=== PATIENT | female | born 1955 | race Caucasian/White ===

== ENCOUNTER 2016-10-23 11:50 | Outpatient (CLI) ==
[2015-02-20 11:50] VITALS: BMI 20.7
[2016-10-23 12:55] LABS: ALBUMIN 3.9 g/dL (3.4-5.0); ALBUMIN/GLOBULIN RATIO 1.3; BILIRUBIN,TOTAL 0.47 mg/dL (0.00-1.20); BUN/CREATININE RATIO 10.34; CALCIUM 9.2 mg/dL (8.2-10.2); CHOL/HDL RATIO 4.6 (4.5-5.5); CREATININE 1.16 mg/dL (0.60-1.30); TOTAL PROTEIN 6.9 g/dL (5.8-8.1)
--- NOTE | 2016-10-23 13:13 | DI ---
EXAM: Radiographs, lumbar spine HISTORY: Lumbar radiculopathy, spinal stenosis. COMPARISON: 04/23/2011. TECHNIQUE: Five views. FINDINGS: Curvature and alignment are normal. Vertebral body heights are grossly normal in the lum bar spine. Transitional lumbosacral anatomy noted. Disc heights are normal. Mild facet arthropath y and endplate osteophyte formation is present. No acute fractures seen. Sacral arcuate lines are poorly seen due to osteopenia and superimposition of structures. Atherosclerotic calcifications not ed in the aorta. Since the prior study, there is no significant interval change. IMPRESSION: Stable mild degenerative changes.
== END 2016-10-23 11:51 | disposition home or self-care (01) ==
LOC: RAD 11:50
PROVIDERS: ATTEND Nurse Practitioner Family
DX: J44.9 Chronic obstructive pulmonary disease, unspecified (principal); I10 Essential (primary) hypertension; E78.5 Hyperlipidemia, unspecified; M51.16 Intervertebral disc disorders with radiculopathy, lumbar region; M51.17 Intervertebral disc disorders with radiculopathy, lumbosacral region; M48.06 Spinal stenosis, lumbar region; M48.07 Spinal stenosis, lumbosacral region
CPT/HCPCS: 36415; 80053; 80061; 84443

== ENCOUNTER 2016-12-06 18:53 | Emergency (ER) ==
[2016-12-06 19:01] VITALS: BP 106/64; TEMP 98.2; BMI 25.0
--- NOTE | 2016-12-06 19:45 | DI ---
EXAM: Right wrist. Three-view. HISTORY: Right wrist pain. Fall. COMPARISON: None. FINDINGS: AP, lateral oblique views of the right wrist. There are no acute or healing fractures. There are no lytic or blastic lesions. Soft tissues are normal. Bone mineralization is normal. No significant degenerative changes. IMPRESSION: Normal right wrist.
--- NOTE | 2016-12-06 19:45 | DI ---
EXAM: Right hand three view. Three view. HISTORY: Pain. Fall. COMPARISON: None. FINDINGS: AP, lateral and oblique views of the right hand. There are no acute or healing fractures . There are no lytic or blastic lesions. Soft tissues are normal. Bone mineralization is normal. Joint narrowing and osteophyte formation is seen in all interphalangeal joints. There are no erosi ve changes. IMPRESSION: 1. No acute fractures. 2. Osteoarthritis.
[2016-12-06] MEDS ORDERED: NORCO 7.5-325 PO STA (19:49)
--- NOTE | 2016-12-06 19:52 | ED.PDOC ---
General ED Provider: Dr. EVA SARMIENTO-ER Chief Complaint: Extremity Pain/Injury Stated Complaint: i fell on my hand and it and my wrist hurts Time Seen by Physician: 18:55 Mode of Arrival: Walk-In Information Source: Patient Exam Limitations: No limitations Nursing and Triage Documentation Reviewed and Agree: Yes Musculoskeletal Complaint Exam - Hand/Wrist Complaint/Exam Location of Pain: Reports: Right, Hand, Wrist Mechanism of Injury: Reports: Trauma Onset/Duration: one hour Symptoms Are: Still present Onset of Pain: Reports: Immediate Initial Severity: Mild Current Severity: Mild Location: Reports: Discrete Character: Reports: Dull, Aching Alleviating: Reports: Rest, Elevation Aggravating: Reports: Movement Associated Signs and Symptoms: Denies: Swelling, Redness, Bruising, Fever, Weakness, Numbness, Tingling Related Surgical History: Reports: None Hand/Wrist Findings: Present: Swelling Tenderness: Present: Radius, Metacarpal Compartment Syndrome Risk Factors: Present: Pain. Absent: Paralysis, Pallor, Pulselessness, Paresthesias Differential Diagnoses: Contusion, Closed Fracture, Sprain, Strain Review of Systems - Review Of Systems Constitutional: Reports: No symptoms Eyes: Reports: No symptoms Ears, Nose, Mouth, Throat: Reports: No symptoms Respiratory: Reports: No symptoms Cardiac: Reports: No symptoms GI: Reports: No symptoms : Reports: No symptoms Musculoskeletal: Reports: Joint pain, Muscle pain Skin: Reports: No symptoms Neurological: Reports: No symptoms Endocrine: Reports: No symptoms Hematologic/Lymphatic: Reports: No symptoms All Other Systems: Reviewed and Negative Past Medical History - Past Medical History Endocrine: Reports: Unknown Cardiovascular: Reports: Unknown Respiratory: Reports: Unknown Hematological: Reports: Unknown Gastrointestinal: Reports: Unknown Genitourinary: Reports: Unknown Neuro/Psych: Reports: Unknown Musculoskeletal: Reports: Unknown Cancer: Reports: Unknown Last Menstrual Period: no longer has them - Surgical History General Surgical History: Reports: Unknown - Family History Family History: Reports: Unknown - Social History Smoking Status: Former smoker Hx Substance Use: No Alcohol Screening: Occasionally Physical Exam - Physical Exam Appearance: Well-appearing, No pain distress, Well-nourished Pain Distress: Mild Eyes: BERTHA, EOMI, Conjunctiva clear ENT: Ears normal, Nose normal, Oropharynx normal Neck: Supple Respiratory: Airway patent Cardiovascular: RRR, Pulses normal, No rub, No murmur GI/: Soft, Nontender, No masses, Bowel sounds normal, No Organomegaly Musculoskeletal: Limited ROM Skin: Warm Neurological: Sensation intact Psychiatric: Affect appropriate, Mood appropriate Interpretation - Radiology Interpretation Radiology Interpretation By: Radiologist Radiology Results: Negative Critical Care Note - Critical Care Note Total Time (mins): 0 Course - Course Orders, Labs, Meds: Orders Category Date Time Status CYNDEE [ED CYNDEE WRAP] .ONCE EMERGENCY 12/06/16 19:49 Active Hydrocodone Bit/Acetaminophen [Cou[place]and 7.5-325] MEDS 12/06/16 19:49 Discontinued 1 tab PO ONCE STA HAND, RIGHT 3 VIEWS Stat RADS 12/06/16 19:25 Completed WRIST, RIGHT 3 VIEWS Stat RADS 12/06/16 19:24 Completed Medications Discontinued Medications Generic Name Dose Route Start Last Admin Trade Name Freq PRN Reason Stop Dose Admin Acetaminophen/Hydrocodone Bitart 1 tab 12/06/16 19:49 12/06/16 20:00 [place] 7.5-325 PO 12/06/16 19:50 1 tab ONCE STA Administration Vital Signs: Temp Pulse Resp BP Pulse Ox 12/06/16 18:54 98.2 F 72 16 106/64 94 L Departure - Departure Time of Disposition: 19:52 Disposition: HOME SELF-CARE Discharge Problem: Contusion of wrist, right Qualifiers: Encounter type: initial encounter Qualifier Code: (S60.211A) Contusion of right wrist, initial encounter Instructions: Wrist Injury (ED) Condition: Good Pt referred to PMD for follow-up: Yes Additional Instructions: ue motrin for pain--if still painful in 48hrs consider mri of the hand/wrist Allergies/Adverse Reactions: Allergies milk Allergy (Severe, Verified 12/06/16 19:01) severe diarrhea tuna Allergy (Severe, Uncoded 12/06/16 19:01) N/V and diarrhea Home Medications: Ambulatory Orders Hydrocodone/Acetaminophen [Cou[place] 7.5-325 Tablet] 1 each PO BID PRN #60 tab-cap 02/17/15 Sulfamethoxazole/Trimethoprim [Bactrim Ds Tablet] 1 each PO PRN PRN 09/27/15 Disposition Discussed With: Patient
== END 2016-12-06 20:00 | disposition home or self-care (01) ==
LOC: ED 18:53
DX: S60.211A Contusion of right wrist, initial encounter (principal); M79.641 Pain in right hand; W19.XXXA Unspecified fall, initial encounter
CPT/HCPCS: 99282

== ENCOUNTER 2016-12-19 10:43 | Outpatient (CLI) ==
--- NOTE | 2016-12-19 11:22 | DI ---
Exam: Two x-rays of the right forearm. Comparison: Right wrist x-rays performed 12/06/2016. Reason for study: Pain in right arm FINDINGS: No acute fracture or malalignment. The cortex is intact. No unexplained radiopaque will ined foreign bodies or calcific soft tissue densities. Impression: No acute fracture or malalignment in the right radius or ulna.
== END 2016-12-19 10:44 | disposition home or self-care (01) ==
LOC: RAD 10:43
PROVIDERS: ATTEND Nurse Practitioner Family
DX: M79.601 Pain in right arm (principal); T14.90 Injury, unspecified

== ENCOUNTER 2016-12-25 12:34 | Outpatient (CLI) ==
[2016-12-25 13:26] LABS: ALBUMIN/GLOBULIN RATIO 1.43; ANION GAP 13.6; BILIRUBIN,TOTAL 0.37 mg/dL (0.00-1.20); BUN/CREATININE RATIO 24.63; CALCIUM 8.7 mg/dL (8.2-10.2); CHOL/HDL RATIO 4.2 (4.5-5.5); CREATININE 1.38 mg/dL (0.60-1.30); POTASSIUM 4.6 mmol/L (3.5-5.10); TOTAL PROTEIN 6.8 g/dL (5.8-8.1)
== END 2016-12-25 12:35 | disposition home or self-care (01) ==
LOC: LAB 12:34
PROVIDERS: ATTEND Nurse Practitioner Family
DX: E78.5 Hyperlipidemia, unspecified (principal)
CPT/HCPCS: 36415; 80053; 80061

== ENCOUNTER 2017-01-11 11:43 | Outpatient (CLI) ==
[2017-01-11 15:08] LABS: ALBUMIN 4.2 g/dL (3.4-5.0); ALBUMIN/GLOBULIN RATIO 1.35; BILIRUBIN,TOTAL 0.55 mg/dL (0.00-1.20); BUN/CREATININE RATIO 17.42; CALCIUM 9.4 mg/dL (8.2-10.2); CHOL/HDL RATIO 5.3 (4.5-5.5); CREATININE 1.32 mg/dL (0.60-1.30); TOTAL PROTEIN 7.3 g/dL (5.8-8.1)
== END 2017-01-11 11:44 | disposition home or self-care (01) ==
LOC: LAB 11:43
PROVIDERS: ATTEND Emergency Medicine
DX: E78.5 Hyperlipidemia, unspecified (principal)
CPT/HCPCS: 36415; 80053; 80061

== ENCOUNTER 2017-04-22 13:16 | Outpatient (CLI) ==
[2017-04-22 13:49] LABS: BASOPHILS # (AUTO) 0.1 K/uL (0-0.2); BASOPHILS % (AUTO) 0.9 % (0.0-3.0); EOSINOPHILS # (AUTO) 0.2 K/ul (0.0-0.7); EOSINOPHILS % (AUTO) 2.4 % (0.0-7.0); HEMATOCRIT 42.8 % (37.0-47.0); HEMOGLOBIN 14.5 g/dl (12.0-16.0); IMMATURE GRANULOCYTE % (AUTO) 0.5 % (0.0-5.0); LYMPHOCYTES # (AUTO) 2.2 K/uL (0.60-3.4); LYMPHOCYTES % (AUTO) 34.8 (10.0-50.0); MEAN CORPUSCULAR HEMOGLOBIN 30.2 pg (27.0-31.0); MEAN CORPUSCULAR HGB CONC 33.9 (31.8-35.4); MEAN CORPUSCULAR VOLUME 89.2 fl (81.0-99.0); MONOCYTES # (AUTO) 0.5 K/uL (0.4-2.0); MONOCYTES % (AUTO) 8.5 (0-10); NEUTROPHILS # (AUTO) 3.4 K/ul (2.0-6.9); NEUTROPHILS % (AUTO) 52.9; PLATELET COUNT 271 10^3/uL (140-440); WHITE BLOOD COUNT 6.38 K/ul (4.6-10.2)
[2017-04-22 15:02] LABS: ALBUMIN 4.1 g/dL (3.4-5.0); ALBUMIN/GLOBULIN RATIO 1.41; ANION GAP 17.2; BILIRUBIN,TOTAL 0.32 mg/dL (0.00-1.20); BUN/CREATININE RATIO 16.53; CALCIUM 9.5 mg/dL (8.2-10.2); CHOL/HDL RATIO 4.2 (4.5-5.5); CREATININE 1.27 mg/dL (0.60-1.30); POTASSIUM 4.2 mmol/L (3.5-5.10)
== END 2017-04-22 13:17 | disposition home or self-care (01) ==
LOC: LAB 13:16
PROVIDERS: ATTEND Nurse Practitioner Family
DX: I10 Essential (primary) hypertension (principal); E78.5 Hyperlipidemia, unspecified
CPT/HCPCS: 36415; 80053; 80061; 85025

== ENCOUNTER 2017-08-12 13:24 | Outpatient (CLI) ==
[2017-08-12 13:58] LABS: HEMATOCRIT 42.9 % (37.0-47.0); HEMOGLOBIN 14.8 g/dl (12.0-16.0); MEAN CORPUSCULAR HEMOGLOBIN 30.5 pg (27.0-31.0); MEAN CORPUSCULAR HGB CONC 34.5 (31.8-35.4); MEAN CORPUSCULAR VOLUME 88.5 fl (81.0-99.0); RED BLOOD COUNT 4.85 10^6/ul (4.20-5.40); WHITE BLOOD COUNT 5.37 K/ul (4.6-10.2)
[2017-08-12 14:26] LABS: ALBUMIN/GLOBULIN RATIO 1.33; ANION GAP 14.1; BILIRUBIN,TOTAL 0.29 mg/dL (0.00-1.20); BUN/CREATININE RATIO 14.91; CALCIUM 9.4 mg/dL (8.2-10.2); CREATININE 1.14 mg/dL (0.60-1.30); POTASSIUM 4.1 mmol/L (3.5-5.10)
[2017-08-13 10:00] LABS: URINE CREATININE 128.4 mg/dL (Not Estab.); URINE MALB/CR RATIO 115.8 mg/g creat (0.0-30.0)
== END 2017-08-12 13:25 | disposition home or self-care (01) ==
LOC: LAB 13:24
PROVIDERS: ATTEND Internal Medicine Nephrology
DX: N18.3 Chronic kidney disease, stage 3 (moderate) (principal)
CPT/HCPCS: 36415; 80053; 82043; 85027

== ENCOUNTER 2017-10-21 14:37 | Outpatient (CLI) | END 2017-10-21 14:38 | disposition home or self-care (01) | LOC: LAB 14:37 | PROVIDERS: ATTEND Nurse Practitioner Family | DX: E78.5 Hyperlipidemia, unspecified (principal); I10 Essential (primary) hypertension | CPT/HCPCS: 36415; 80053; 80061; 84443; 85025 ==

== ENCOUNTER 2018-02-19 13:55 | Outpatient (CLI) | payer OTHER | END 2018-02-19 13:56 | disposition home or self-care (01) | LOC: LAB 13:55 | PROVIDERS: ATTEND Internal Medicine Nephrology | DX: N18.3 Chronic kidney disease, stage 3 (moderate) (principal) | CPT/HCPCS: 36415; 80053; 82043; 85025; 85027 ==

== ENCOUNTER 2018-04-21 12:38 | Outpatient (CLI) | END 2018-04-21 12:39 | disposition home or self-care (01) | LOC: RHC-LAB 12:38 | PROVIDERS: ATTEND Nurse Practitioner Family | DX: I10 Essential (primary) hypertension (principal); E78.5 Hyperlipidemia, unspecified | CPT/HCPCS: 36415; 80053; 80061; 85025 ==

== ENCOUNTER 2018-10-20 09:59 | Outpatient (CLI) | payer OTHER | END 2018-10-20 10:00 | disposition home or self-care (01) | LOC: RHC-LAB 09:59 | PROVIDERS: ATTEND Nurse Practitioner Family | DX: E78.5 Hyperlipidemia, unspecified (principal); I10 Essential (primary) hypertension | CPT/HCPCS: 36415; 80048; 80053; 80061; 84443 ==

== ENCOUNTER 2019-02-23 14:41 | Outpatient (CLI) ==
--- NOTE | 2019-02-23 16:30 | DI ---
EXAM: Seven views of the lumbar spine. History: Lower back pain. Comparison: Lumbar spine radiograph 10/23/2016 Findings: Atherosclerotic vascular calcifications. No acute fracture or subluxation of the lumbar s pine. Mild to moderate multilevel disc space narrowing with endplate sclerosis and a few small osteo phytes not significantly changed compared to the prior study. No instability identified with flexion or extension. Moderate facet hypertrophy again seen at L5-S1. Impression: 1. No acute osseous abnormality of the lumbar spine. 2. Stable degenerative disc disease
--- NOTE | 2019-02-24 10:47 | MRI ---
EXAM: Lumbar spine MRI without contrast. HISTORY: Lumbar disc disorder. COMPARISON: Lumbar spine radiographs 02/23/2019. TECHNIQUE: Multiplanar, multisequence MR images were acquired lumbar spine without contrast. FINDINGS: Five non-rib bearing lumbar vertebra are present. S1 is a transitional vertebra with part ial left sacralization. There is a pseudoarticulation between the left first sacral segment and left second sacral segment and and a small intervertebral disc. Conus medullaris ends at L1-2 and is nor mal morphology and signal intensity. Canal diameter is developmentally narrow. The lumbar vertebra are normal in height and intrinsic bone marrow signal. There is minor mid lumbar levoscoliosis and 3 mm leftward translation of L5 on S1. There is mild accentuation usual lumbar lordosis. Minor lumba r ventral spondylosis is present and there is endplate irregularity with small chronic Schmorl's node s from T10-11 through L3-4. There is mild disc space narrowing at L3-4 and moderate disc space narro wing at L5-S1. Developing disc dessication is present at L1-2 and L3-4. The partially visualized liver and spleen are normal. There is moderate left renal atrophy and compe nsatory right renal hypertrophy. Multiple small left renal cysts are present. Bilateral renal cysts are present. There are multiple cysts in the left kidney. There are no paravertebral masses. Ther e is osteoarthritis of the posterior spinous process of L3-4 and L4-5 and a small cysts are present a long the L4-5 posterior spinous processesraising the possibility of Baastrup's phenomenon. L1-2: There is a minor spondylotic disc bulge without central canal stenosis. In this patient with a developmentally narrow canal, there is mild right and mild-moderate left foraminal stenosis. L2-3: There is a minor disc bulge and minor right and mild left neural foraminal stenosis. There is no central canal stenosis. L3-4: There is a mild disc bulge that is asymmetric to the left with small left far lateral endplate osteophytes to this encroaches on the left L3 nerve exiting neural foramen. Minor right facet arthr opathy and mild hypertrophic left facet arthropathy and ligamentum flavum hypertrophy is present. Th ere is mild right and mild to moderate left neural foraminal stenosis and mild spinal stenosis. AP d iameter of the thecal sac is 9 mm. L4-5: There is a minor disc bulge that is asymmetric to the left which encroaches on the left L4 ner ve exiting the neural foramen. Mild bilateral facet and ligamentum flavum hypertrophy is present and there is mild to moderate left and mild right neural foraminal stenosis. There is prominent dorsal epidural fat and there is mild spinal stenosis. AP diameter of the thecal sac is 9 mm. L5-S1: There is a mild spondylotic disc bulge that is asymmetric to the right with irregularity of t he right lateral endplates and small right lateral/far lateral endplate osteophytes that narrow the i nferior right neural foramen and encroach on the exiting right L5 nerve. There is a small central di sc extrusion and annular tear with inferior migration and mild to moderate bilateral hypertrophic fac et arthropathy and ligamentum flavum hypertrophy. There is mild tapering of the thecal sac which is small at this level and measures 7.6 mm in AP diameter. There is moderate right neural foraminal franc nosis and severe stenosis at the entry to the left neural foramen. There is a prominent anterior ost eophyte arising from the left facet joint and this impinges on the traversing left L5 nerve. IMPRESSION: 1. Mild to moderate lumbar degenerative spondylosis and facet arthropathy with degenerative endplate changes and small chronic Schmorl's nodes in the lower thoracic and lumbar spine from T10-11 through L3-4. 2. Small central disc extrusion L5-S1. 3. Mild L3-4 and L4-5 spinal stenosis and mild to moderate left L1-2, L3-4 and L4-5 and moderate rig ht and severe left L5-S1 foraminal stenosis. 4. Moderate left renal atrophy and compensatory right renal hypertrophy.
== END 2019-02-23 14:42 | disposition home or self-care (01) ==
LOC: RAD 14:41
PROVIDERS: ATTEND Nurse Practitioner Family
DX: M51.16 Intervertebral disc disorders with radiculopathy, lumbar region (principal); M51.17 Intervertebral disc disorders with radiculopathy, lumbosacral region; M48.061 Spinal stenosis, lumbar region without neurogenic claudication; M48.07 Spinal stenosis, lumbosacral region; M51.37 Other intervertebral disc degeneration, lumbosacral region; M47.816 Spondylosis without myelopathy or radiculopathy, lumbar region; M47.817 Spondylosis without myelopathy or radiculopathy, lumbosacral region